=== PATIENT | female | born 1970 ===

== ENCOUNTER 2024-04-04 10:18 | Emergency (ER) | payer MEDICAID ==
[~2024-04-04] VITALS: Ht 177.8 cm; Wt 100.0 kg
[2024-04-04 10:21] VITALS: O2SAT 99
[2024-04-04 12:10] LABS: EOSINOPHILS % 1.3 % (0.0-5.0); HEMATOCRIT. 40.2 % (36.0-48.0); HEMOGLOBIN. 13.3 g/dL (12.0-16.0); LYMPHOCYTES % 30.9 % (20.0-50.0); MEAN CORPUSCULAR HGB CONC 32.9 g/dL (31.0-37.0); MEAN CORPUSCULAR VOLUME 91.1 fL (81.0-99.0); MEAN PLATELET VOLUME 7.9 fl (7.4-10.4); MONOCYTES % 7.6 % (2.0-8.0); NEUTROPHILS % 59.2 % (40.0-76.0); PLATELET 305 x1000/uL (130-400); RED BLOOD CELL COUNT 4.42 mill/uL (4.2-5.4); RED CELL DISTRIBUTION WIDTH 14.3 % (11.6-14.6); WHITE BLOOD COUNT 8.3 x1000/uL (4.5-11.0)
[2024-04-04 12:26] LABS: CHLORIDE 104 mEq/L (98-107); POTASSIUM 4.4 mEq/L (3.5-5.1); SODIUM 137 mEq/L (136-145)
[2024-04-04 12:27] LABS: CALCIUM 9.4 mg/dL (8.7-10.4); CARBON DIOXIDE 29 mEq/L (21-32)
[2024-04-04 12:32] LABS: CREATININE 0.9 mg/dL (0.6-1.0); GLUCOSE 95 mg/dL (70-105); UREA NITROGEN BLOOD 19 mg/dL (9-23)
[2024-04-04 12:33] LABS: ETHANOL BLOOD < 10 mg/dL (<10); TROPONIN I HIGH SENSITIVITY 5 ng/L (3.0-34)
[2024-04-04 12:34] LABS: ACETAMINOPHEN 3 ug/mL (10-30); ALANINE AMINOTRANSFERASE 12 IU/L (10-49); ALBUMIN 4.4 g/dL (3.2-4.8); ASPARTATE AMINOTRANSFERASE 23 IU/L (<34); BILIRUBIN TOTAL 0.6 mg/dL (0.1-1.0); PROTEIN TOTAL 7.3 g/dL (6.0-8.3)
[2024-04-04 12:37] LABS: BILIRUBIN DIRECT < 0.1 mg/dL (<=3.0)
[2024-04-04 16:11] VITALS: BP 115/68; PULSE 92; RESP 14; TEMP 98.6
[2024-04-04] MEDS: ACETAMINOPHEN 325MG TABLET PO ONE (16:35)
[2024-04-05] MEDS ORDERED: DICL100G32 TP (05:41)
[2024-04-05] MEDS ORDERED: CYCL10TA21 MT (05:41)
[2024-04-05] MEDS ORDERED: ACET-2708 MT (05:41)
== END 2024-04-04 17:05 | disposition home or self-care (01) ==
LOC: ER 10:18
DX: U07.1 COVID-19 (principal); J45.909 Unspecified asthma, uncomplicated; I50.9 Heart failure, unspecified; Z88.6 Allergy status to analgesic agent; Z88.5 Allergy status to narcotic agent; Z88.8 Allergy status to other drugs, medicaments and biological substances; Z98.890 Other specified postprocedural states
CPT/HCPCS: 80076; 80048; 80307; 80329; 80320; 83690; 85025; 84484; 36415; 71045; 93005; 99285; Z7610; G0480

== ENCOUNTER 2024-04-05 02:39 | Emergency (ER) | payer MEDICAID ==
[~2024-04-05] VITALS: Ht 167.6 cm; Wt 96.7 kg
[2024-04-05 03:00] VITALS: O2SAT 98
[2024-04-05 03:41] LABS: BASOPHILS % 1.3 % (0.0-2.0); EOSINOPHILS % 1.5 % (0.0-5.0); HEMATOCRIT. 42.7 % (36.0-48.0); HEMOGLOBIN. 13.8 g/dL (12.0-16.0); LYMPHOCYTES % 40.1 % (20.0-50.0); MEAN CORPUSCULAR HEMOGLOBIN 29.6 pg (28.0-32.0); MEAN CORPUSCULAR HGB CONC 32.2 g/dL (31.0-37.0); MEAN CORPUSCULAR VOLUME 91.9 fL (81.0-99.0); MEAN PLATELET VOLUME 8.1 fl (7.4-10.4); MONOCYTES % 5.9 % (2.0-8.0); NEUTROPHILS % 51.2 % (40.0-76.0); PLATELET 328 x1000/uL (130-400); RED BLOOD CELL COUNT 4.65 mill/uL (4.2-5.4); RED CELL DISTRIBUTION WIDTH 14.2 % (11.6-14.6); WHITE BLOOD COUNT 9.2 x1000/uL (4.5-11.0)
[2024-04-05 03:55] LABS: CALCIUM 10.1 mg/dL (8.7-10.4); CARBON DIOXIDE 25 mEq/L (21-32); CHLORIDE 103 mEq/L (98-107); POTASSIUM 3.9 mEq/L (3.5-5.1); SODIUM 136 mEq/L (136-145)
[2024-04-05 04:00] LABS: CREATININE 0.9 mg/dL (0.6-1.0)
[2024-04-05 04:01] LABS: GLUCOSE 99 mg/dL (70-105); UREA NITROGEN BLOOD 17 mg/dL (9-23)
[2024-04-05] MEDS: ACETAMINOPHEN 325MG TABLET PO STA (05:36)
[2024-04-05] MEDS: CYCLOBENZAPRINE 10MG TABLET PO STA (05:36)
[2024-04-05] MEDS ORDERED: CYCL10TA21 MT (05:41)
[2024-04-05] MEDS ORDERED: DICL100G32 TP (05:41)
[2024-04-05] MEDS ORDERED: ACET-2708 MT (05:41)
[2024-04-05 05:53] VITALS: BP 134/66; PULSE 88; RESP 16; TEMP 98
== END 2024-04-05 05:56 | disposition home or self-care (01) ==
LOC: ER 02:48
DX: M54.50 Low back pain, unspecified (principal); I50.9 Heart failure, unspecified; J45.909 Unspecified asthma, uncomplicated; Z88.6 Allergy status to analgesic agent; Z88.8 Allergy status to other drugs, medicaments and biological substances; Z98.890 Other specified postprocedural states
CPT/HCPCS: 36415; 80048; 85025; 99283